=== PATIENT | female | born 1985 ===

== ENCOUNTER 2017-01-29 21:15 | Emergency (ER) | payer OTHER ==
[2017-01-29 21:24] VITALS: BP 123/89; PULSE 89; RESP 16; TEMP 98.4; O2SAT 100
--- NOTE | 2017-01-29 21:43 | ED PDOC ---
HPI: Abdomen Chief Complaint (Provider): lower abdominal cramping s/p medical History Per: Patient History/Exam Limitations: no limitations Onset/Duration Of Symptoms: Days (2) Outside of [place] travel?: No Current Symptoms Are (Timing): Intermittent Episodes Context: Other Severity: Moderate Pain Scale Rating Of: 7 Location Of Pain/Discomfort: Suprapubic Quality Of Discomfort: Cramping Associated Symptoms: denies: Fever, Chills, Nausea, Vomiting, Diarrhea Exacerbating Factors: denies: None Last Bowel Movement: Yesterday Additional History Per: Patient <Rogerio Hernández - Last Filed: 01/29/17 23:06> <Aung Osullivan - Last Filed: 01/30/17 03:07> Time Seen by Provider: 01/29/17 21:28 Chief Complaint (Nursing): Abdominal Pain Additional Complaint(s): 31 y/o presenting to ED 2 days s/p medical termination at 8 weeks GA. Patient [facility] , followed by Cyt[facility] per vagina 24 hrs later. States passing POC Monday with cramping abdominal pain. Pain initially subsided Monday night, along with bleeding but started again today which prompted her to come to ED. Pain is crampy, suprapubic with radiation to lower back, moderate 7/10 intensity, no alleviating factors. Currently some vaginal spotting only. Denies fevers, chills , n/v/d, no cp/sob, abnormal or malodorous vaginal discharge, dysuria reported. HEAD CHEF Hx: 3 medical first trimester abortions; , denies h/o STIs PMH: none PSH: denies Meds: none Allergies: NKDA (Rogerio Hernández) Supervising Attending Note - Attestation: I have personally seen and examined this patient.: Yes I have fully participated in the care of the patient.: Yes I have reviewed all pertinent clinical information: Yes <Aung Osullivan - Last Filed: 01/30/17 03:07> Past Medical History - Medical History PMH: No Chronic Diseases - Surgical History Surgical History: No Surg Hx - Family History Family History: States: Unknown Family Hx - Social History Current smoker - smoking cessation education provided: No Alcohol: Social Drugs: Denies <Rogerio Hernández Robson - Last Filed: 01/29/17 23:06> <Aung Osullivan - Last Filed: 01/30/17 03:07> Vital Signs: Last Vital Signs Temp 98.4 F 01/29/17 21:22 Pulse 89 01/29/17 21:22 Resp 16 01/29/17 21:22 BP 123/89 01/29/17 21:22 Pulse Ox 100 01/29/17 23:25 - Allergies Allergies/Adverse Reactions: Allergies Allergy/AdvReac Type Severity Reaction Status Date / Time No Known Allergies Allergy Verified 01/29/17 21:24 Review of Systems Constitutional: Negative for: Fever, Chills, Weakness Gastrointestinal: Positive for: Abdominal Pain. Negative for: Nausea, Vomiting , Diarrhea Genitourinary Female: Positive for: Pelvic Pain. Negative for: Dysuria, Frequency, Incontinence, Hematuria, Vaginal Discharge <Rogerio Hernández Robson - Last Filed: 01/29/17 23:06> Physical Exam - Physical Exam Appears: Positive for: No Acute Distress Head Exam: Positive for: ATRAUMATIC Skin: Positive for: Warm, Dry Cardiovascular/Chest: Positive for: Regular Rate, Rhythm Respiratory: Positive for: Normal Breath Sounds Gastrointestinal/Abdominal: Positive for: Soft Pelvic Exam: Positive for: External Exam Normal, Active Bleeding, Other (active expulsion of membranes/POC from cervical Os). Negative for: Cervicitis, Tender Adnexa, Tender Uterus Back: Negative for: L CVA Tenderness, R CVA Tenderness <Rogerio Hernández - Last Filed: 01/29/17 23:06> - Laboratory Results Result Diagrams: 01/29/17 22:05 01/29/17 22:05 - ECG O2 Sat by Pulse Oximetry: 100 - Progress Re-evaluation Time: 23:06 Condition: Improved <Rogerio Hernández - Last Filed: 01/29/17 23:06> - Laboratory Results Result Diagrams: 01/29/17 22:05 01/29/17 22:05 <Aung Osullivan - Last Filed: 01/30/17 03:07> - Progress ED Course And Treament: Medically induced termination of - VSS - cbc, cmp, quant beta HCG, type and screen - UA - TVUS - toradol - IVF (Rogerio Hernández) Disposition - Patient ED Disposition Is Patient to be Admitted: No - Disposition Disposition: Routine/Home Disposition Time: 23:07 <Rogerio Hernández - Last Filed: 01/29/17 23:06> <Aung Osullivan - Last Filed: 01/30/17 03:07> - Clinical Impression Clinical Impression: Abdominal pain in female - Disposition Condition: GOOD Additional Instructions: can take NSAIDs for pain with food [id number] return to ED if pain is severe, fevers, chills, vomiting. Instructions: Misoprostol (By mouth), Spontaneous Miscarriage (ED) Print Language: ARABIC
[2017-01-29 22:17] LABS: RBC URINE 20 /hpf (0-3); URINE BACTERIA RARE (<OCC); URINE BILIRUBIN NEGATIVE (NEGATIVE); URINE BLOOD MODERATE (NEGATIVE); URINE CALCIUM OXALATE CRYSTALS FEW /hpf (<OCC); URINE COLOR YELLOW (YELLOW); URINE GLUCOSE (UA) NEG (Normal); URINE KETONE NEGATIVE (NEGATIVE); URINE PROTEIN NEGATIVE (NEGATIVE); URINE UROBILINOGEN 0.2-1.0 mg/dL (0.2-1.0); WBC URINE 6 /hpf (0-5)
[2017-01-29 22:18] LABS: MEAN CELL VOLUME 87.8 fl (81.0-99.0); MEAN CORPUSCULAR HEMOGLOBIN 28.9 pg (27.0-31.0); RED CELL DISTRIBUTION WIDTH 14.9 % (11.5-14.5); WHITE BLOOD COUNT 10.4 K/uL (4.8-10.8)
[2017-01-29 22:20] LABS: URINE LEUKOCYTE ESTERASE TRACE Leu/uL (Negative)
[2017-01-29 22:31] LABS: ALB/GLOB RATIO 1.3 (1.0-2.1); ALKALINE PHOSPHATASE 69 U/L (38-126); ALT/SGPT 23 U/L (9-52); AST/SGOT 29 U/L (14-36); BILIRUBIN,TOTAL 0.4 mg/dl (0.2-1.3); BLOOD UREA NITROGEN 12 mg/dl (7-17); CALCIUM 8.9 mg/dL (8.4-10.2); CARBON DIOXIDE 22 mmol/L (22-30); CHLORIDE 105 mmol/L (98-107); GFR AFRICAN-AMERICAN > 60; GLUCOSE,RANDOM 84 mg/dL (65-105); POTASSIUM 3.8 MMOL/L (3.6-5.0); SODIUM 136 mmol/l (132-148); TOTAL PROTEIN 7.2 G/DL (6.3-8.2)
--- NOTE | 2017-01-30 12:45 | US ---
HISTORY: s/p SAB, abdominal pain COMPARISON: None. TECHNIQUE: Transvaginal only. Real -time technique with 2D, duplex and color Doppler FINDINGS: UTERUS: Measures 4.4 x 6.7 x 2.4 cm. Normal in size and appearance. No fibroid or other mass lesion seen. ENDOMETRIUM: Irregular endometrium, lower endometrial echo complex region extending into the cervix. The area of interest measures 10 x 16 mm. Differentiating hemorrhagic products from retained products of conception is difficult. CERVIX: No cervical abnormality identified. RIGHT OVARY: Measures 2.5 x 3.5 cm. No solid mass. Normal flow. LEFT OVARY: Measures 2.3 x 3.6 cm. No solid mass. Normal flow. FREE FLUID: No significant free fluid noted. OTHER FINDINGS: None. IMPRESSION: In this clinical setting/ history findings in the lower uterine segment of the endometrial canal likely represent a combination of hemorrhagic products and retained products of conception. Concordant results (preliminary interpretation) provided by [facility]. Procedure Completed: 22:16. Preliminary ([facility]) Report: Dictated and Authenticated: 22:40. Final Interpretation: 12:43. January 30, 2017.
== END 2017-01-29 23:31 | disposition home or self-care (01) ==
LOC: H.ER 21:15
DX: R10.9 Unspecified abdominal pain (principal)